=== PATIENT | male | born 1950 | race American Indian/Alaskan Native ===

== ENCOUNTER 2020-10-30 14:53 | Inpatient (IN) | payer MEDICARE ==
[2020-10-30] MEDS ORDERED: SODIUM CHLORIDE 0.9% 1000 ML 1,000 ML ONE (16:04)
[2020-10-30] MEDS ORDERED: dilTIAZem 25 MG/5 ML INJ ONE (16:04)
[2020-10-30] MEDS ORDERED: SODIUM CHLORIDE 0.9% 1000 ML 1,000 ML IV ONE (16:28)
[2020-10-30] MEDS ORDERED: dilTIAZem 25 MG/5 ML INJ IV ONE (16:28)
--- NOTE | 2020-10-30 16:33 | Emergency Department Report ---
HPI - General Time Seen by Provider: 10/30/20 16:01 - HPI HPI: 70-year-old -[place] male presents to the emergency department via EMS [place] with complaint of palpitations and tachycardia. The patient says that he woke up this morning feeling like his heart was racing. This is happened to him a few times in the recent past but "usually it goes goes away." He was found, at the clinic, to have a heart rate of about 170 and EMS was called for transport. He denies any chest pain, shortness of breath, lower extremity swelling, nausea, vomiting, diaphoresis. He has a past medical history of hypertension. He recently drove to and from [place] about 1 week ago. He did not take anything, nor receive anything, for his symptoms prior to presentation today. ED Past Medical Hx - Past Medical History Previous Medical History?: Yes Hx Hypertension: Yes ED Review of Systems ROS: Stated complaint: TACHYCARDIA Other details as noted in HPI Comment: All other systems reviewed and negative Constitutional: denies: chills, fever Eyes: denies: eye pain, vision change ENT: denies: ear pain, throat pain Respiratory: denies: cough, shortness of breath Cardiovascular: palpitations. denies: edema Gastrointestinal: denies: abdominal pain, vomiting Genitourinary: denies: dysuria, discharge Musculoskeletal: denies: back pain, arthralgia Skin: denies: rash, lesions Neurological: denies: headache, weakness Physical Exam - Physical Exam Vital Signs: Vital Signs 10/30/20 14:54 Temperature 98.8 F Pulse Rate 170 H Respiratory 18 Rate Blood Pressure 109/62 [Left] O2 Sat by Pulse 99 Oximetry Physical Exam: GENERAL: The patient is well-developed well-nourished. HENT: Normocephalic. Atraumatic. Patient has moist mucous membranes. EYES: Extraocular motions are intact NECK: Supple. Trachea is midline. CHEST/LUNGS: Clear to auscultation. There is no respiratory distress noted. HEART/CARDIOVASCULAR: Regular. There is severe tachycardia. There is no murmur. ABDOMEN: Abdomen is soft, nontender. Patient has normal bowel sounds. There is no abdominal distention. SKIN: Skin is warm and dry. NEURO: The patient is awake, alert, and oriented. The patient is cooperative. The patient has no focal neurologic deficits. Normal speech. MUSCULOSKELETAL: There is no tenderness or deformity. There is no limitation range of motion. ED Course Vital Signs 10/30/20 14:54 Temperature 98.8 F Pulse Rate 170 H Respiratory 18 Rate Blood Pressure 109/62 [Left] O2 Sat by Pulse 99 Oximetry - Reevaluation(s) Reevaluation #1: 10/30/20 16:31 Patient's initial EKG shows a wide complex tachycardia at about 165 bpm. He was given 15 mg of Cardizem and after 1 to 2 minutes patient cardioverted and his heart rate is now down to 67. Repeat EKG shows sinus rhythm at 67 bpm and a right bundle branch block. ED Medical Decision Making - Lab Data Result diagrams: 10/30/20 15:58 10/30/20 15:58 Lab Results 10/30/20 10/30/20 10/30/20 Range/Units 15:58 15:58 15:58 WBC 10.7 (4.5-11.0) K/mm3 RBC 5.40 H (3.65-5.03) M/mm3 Hgb 11.0 L (11.8-15.2) gm/dl Hct 34.2 L (35.5-45.6) % MCV 63 L (84-94) fl MCH 20 L (28-32) pg MCHC 32 (32-34) % RDW > 40.0 H (13.2-15.2) % Plt Count 629 H (140-440) K/mm3 [place] % (Auto) Process Control Technician Baso % (Auto) Process Control Technician Add Manual Diff Complete Total Counted 100 Seg Neuts % (Manual) 42.0 (40.0-70.0) % Lymphocytes % (Manual) 29.0 (13.4-35.0) % Monocytes % (Manual) 27.0 H (0.0-7.3) % Eosinophils % (Manual) 1.0 (0.0-4.3) % Basophils % (Manual) 1.0 (0.0-1.8) % Nucleated RBC % Not Reportable Seg Neutrophils # Man 4.5 (1.8-7.7) K/mm3 Band Neutrophils # 0.0 K/mm3 Lymphocytes # (Manual) 3.1 (1.2-5.4) K/mm3 Abs React Lymphs (Man) 0.0 K/mm3 Monocytes # (Manual) 2.9 H (0.0-0.8) K/mm3 Eosinophils # (Manual) 0.1 (0.0-0.4) K/mm3 Basophils # (Manual) 0.1 (0.0-0.1) K/mm3 Metamyelocytes # 0.0 K/mm3 Myelocytes # 0.0 K/mm3 Promyelocytes # 0.0 K/mm3 Blast Cells # 0.0 K/mm3 WBC Morphology Not Reportable Hypersegmented Neuts Not Reportable Hyposegmented Neuts Not Reportable Hypogranular Neuts Not Reportable Smudge Cells Not Reportable Toxic Granulation Not Reportable Toxic Vacuolation Not Reportable Dohle Bodies Not Reportable Pelger-Huet Anomaly Not Reportable Tasha Rods Not Reportable Platelet Estimate Not Reportable Clumped Platelets Not Reportable Plt Clumps, EDTA Not Reportable Large Platelets Not Reportable Giant Platelets Not Reportable Platelet Satelliting Not Reportable Plt Morphology Comment Not Reportable RBC Morphology Not Reportable Dimorphic RBCs Yes Polychromasia Not Reportable Hypochromasia 2+ Poikilocytosis Not Reportable Anisocytosis 3+ Microcytosis 2+ Macrocytosis Rare Spherocytes Not Reportable Pappenheimer Bodies Not Reportable Sickle Cells Not Reportable Target Cells Not Reportable Tear Drop Cells Not Reportable Ovalocytes Not Reportable Helmet Cells Not Reportable [place] Bodies Not Reportable [place] Rings Not Reportable [place] Cells Not Reportable Bite Cells Not Reportable Crenated Cell Not Reportable Elliptocytes Not Reportable Acanthocytes (Spur) Not Reportable Rouleaux Not Reportable Hemoglobin C Crystals Not Reportable Schistocytes 1+ Malaria parasites Not Reportable Adolfo Bodies Not Reportable Hem Pathologist Commnt No D-Dimer 497.00 H (0-234) ng/mlDDU Sodium 138 (137-145) mmol/L Potassium 6.1 H* (3.6-5.0) mmol/L Chloride 104.8 (98-107) mmol/L Carbon Dioxide 21 L (22-30) mmol/L Anion Gap 18 mmol/L BUN 26 H (9-20) mg/dL Creatinine 1.5 H (0.8-1.3) mg/dL Estimated GFR 56 ml/min BUN/Creatinine Ratio 17 % Glucose 84 (75-100) mg/dL Calcium 8.9 (8.4-10.2) mg/dL Total Bilirubin 0.60 (0.1-1.2) mg/dL AST 26 (5-40) units/L ALT 13 (7-56) units/L Alkaline Phosphatase 58 (35-129) units/L Troponin T < 0.010 (0.00-0.029) ng/mL Total Protein 7.7 (6.3-8.2) g/dL Albumin 4.2 (3.9-5) g/dL Albumin/Globulin Ratio 1.2 % TSH (0.270-4.200) mlU/mL 10/30/20 Range/Units 15:58 WBC (4.5-11.0) K/mm3 RBC (3.65-5.03) M/mm3 Hgb (11.8-15.2) gm/dl Hct (35.5-45.6) % MCV (84-94) fl MCH (28-32) pg MCHC (32-34) % RDW (13.2-15.2) % Plt Count (140-440) K/mm3 [place] % (Auto) Baso % (Auto) Add Manual Diff Total Counted Seg Neuts % (Manual) (40.0-70.0) % Lymphocytes % (Manual) (13.4-35.0) % Monocytes % (Manual) (0.0-7.3) % Eosinophils % (Manual) (0.0-4.3) % Basophils % (Manual) (0.0-1.8) % Nucleated RBC % Seg Neutrophils # Man (1.8-7.7) K/mm3 Band Neutrophils # K/mm3 Lymphocytes # (Manual) (1.2-5.4) K/mm3 Abs React Lymphs (Man) K/mm3 Monocytes # (Manual) (0.0-0.8) K/mm3 Eosinophils # (Manual) (0.0-0.4) K/mm3 Basophils # (Manual) (0.0-0.1) K/mm3 Metamyelocytes # K/mm3 Myelocytes # K/mm3 Promyelocytes # K/mm3 Blast Cells # K/mm3 WBC Morphology Hypersegmented Neuts Hyposegmented Neuts Hypogranular Neuts Smudge Cells Toxic Granulation Toxic Vacuolation Dohle Bodies Pelger-Huet Anomaly Tasha Rods Platelet Estimate Clumped Platelets Plt Clumps, EDTA Large Platelets Giant Platelets Platelet Satelliting Plt Morphology Comment RBC Morphology Dimorphic RBCs Polychromasia Hypochromasia Poikilocytosis Anisocytosis Microcytosis Macrocytosis Spherocytes Pappenheimer Bodies Sickle Cells Target Cells Tear Drop Cells Ovalocytes Helmet Cells [place] Bodies [place] Rings [place] Cells Bite Cells Crenated Cell Elliptocytes Acanthocytes (Spur) Rouleaux Hemoglobin C Crystals Schistocytes Malaria parasites Adolfo Bodies Hem Pathologist Commnt D-Dimer (0-234) ng/mlDDU Sodium (137-145) mmol/L Potassium (3.6-5.0) mmol/L Chloride (98-107) mmol/L Carbon Dioxide (22-30) mmol/L Anion Gap mmol/L BUN (9-20) mg/dL Creatinine (0.8-1.3) mg/dL Estimated GFR ml/min BUN/Creatinine Ratio % Glucose (75-100) mg/dL Calcium (8.4-10.2) mg/dL Total Bilirubin (0.1-1.2) mg/dL AST (5-40) units/L ALT (7-56) units/L Alkaline Phosphatase (35-129) units/L Troponin T (0.00-0.029) ng/mL Total Protein (6.3-8.2) g/dL Albumin (3.9-5) g/dL Albumin/Globulin Ratio % TSH 0.780 (0.270-4.200) mlU/mL - EKG Data -: EKG Interpreted by Me - EKG Data When compared to previous EKG there are: previous EKG unavailable Interpretation: other (Wide-complex tachycardia 171 bpm, normal axis, slightly p rolonged QTC) 10/30/20 16:33 Repeat EKG at 1617 was also interpreted by me. Sinus rhythm at 67 bpm, normal axis, normal intervals, right bundle branch block. No ST elevation [place]. - Radiology Data Radiology results: report reviewed, image reviewed interpreted by me: Chest x-ray does not show any acute process. There are no pleural effusions, obvious pneumonia and there is no pneumothorax. No widened mediastinum. CTA CHEST WITH IV CONTRAST INDICATION: Palpitations, Elevated dimer. TECHNIQUE: Axial CT images were obtained through the chest after injection of 100 cc IV contrast. 3 plane MIP reconstructions were produced. All CT scans at this location are performed using CT dose reduction for ALARA by means of automated exposure control. COMPARISON: None available. FINDINGS: PULMONARY ARTERIES: No pulmonary emboli. THORACIC AORTA: Moderate vascular calcifications nonaneurysmal thoracic aorta. HEART: Moderate cardiomegaly CORONARY ARTERIES: No significant calcification. PLEURA: No pleural effusion. No pneumothorax. LYMPH NODES: No significant adenopathy. LUNGS: No acute air space or interstitial disease. ADDITIONAL FINDINGS: None. UPPER ABDOMEN: No acute findings. SKELETAL STRUCTURES: No significant osseous abnormality. IMPRESSION: 1. No CT evidence for pulmonary embolism. 2. Cardiomegaly without CHF - Medical Decision Making This patient presents to the emergency department with severe tachycardia with a heart rate of about 170. Initial EKG shows a wide complex tachycardia. The patient was placed on a monitor and he was given a dose of IV Cardizem for rate control. This cardioverted the patient into a normal sinus rhythm. The patient's labs show an elevated D-dimer level of about 480, and hyperkalemia with a potassium of 6.1. The patient was given Kayexalate, calcium, insulin and D50 for the hyperkalemia. He had a CT angiography of the chest that did not show any pulmonary embolism, dissection, or any other acute process. Patient will be admitted to the hospital for continued telemetry monitoring and treatment of his hyperkalemia. He was accepted for admission by the hospitalist, Dr. Marcos. Critical Care Time: Yes Critical care time in (mins) excluding proc time.: 31 Critical care attestation.: If time is entered above; I have spent that time in minutes in the direct care of this critically ill patient, excluding procedure time. Critical care time was spent on this patient during his initial evaluation, multiple reevaluations, ordering and interpretation of labs and imaging, IV medication for cardioversion for his wide-complex tachyarrhythmia, treatment of his hyperkalemia, and multiple discussions with the patient. Critical Care Time: 31 minutes ED Disposition Clinical Impression: Tachyarrhythmia, Hyperkalemia, Palpitations Disposition: ADMITTED INPATIENT Is pt being admited?: Yes Condition: Fair Time of Disposition: 19:00
--- NOTE | 2020-10-30 16:45 | XRay Report ---
CHEST 1 VIEW 10/30/2020 3:39 PM INDICATION / CLINICAL INFORMATION: Chest pain. COMPARISON: None available. FINDINGS: SUPPORT DEVICES: None. HEART / MEDIASTINUM: No significant abnormality. LUNGS / PLEURA: No significant pulmonary or pleural abnormality. No pneumothorax. ADDITIONAL FINDINGS: No significant additional findings. IMPRESSION: 1. No acute findings. Signer Name: Paulino Cheng MD Signed: 10/30/2020 4:41 PM Workstation Name: [id number]
[2020-10-30 17:18] LABS: Alanine Aminotransferase 13 units/L (7-56); Albumin 4.2 g/dL (3.9-5); BUN/Creatinine Ratio 17; Blood Urea Nitrogen 26 mg/dL (9-20); Calcium 8.9 mg/dL (8.4-10.2); Hemolysis Index 11
[2020-10-30 17:23] LABS: Hematocrit 34.2 % (35.5-45.6); Mean Corpuscular HGB Conc 32 % (32-34); Mean Corpuscular Volume 63 fl (84-94); Platelet Count 629 K/mm3 (140-440); Red Cell Distribution Width > 40.0 % (13.2-15.2)
[2020-10-30] MEDS ORDERED: CALCIUM GLUCONATE 1,000 MG in SODIUM CHLORIDE 0.9% 100 ML IV ONE (17:41)
[2020-10-30] MEDS ORDERED: SODIUM POLYSTYRENE 15 GM/60 ML ORAL LIQD PO ONE (17:42)
[2020-10-30] MEDS ORDERED: DEXTROSE 50% IN WATER (25GM) 50 ML SYRINGE IV ONE (17:42)
[2020-10-30] MEDS ORDERED: INSULIN REGULAR, HUMAN 100 UNITS/1 ML IV ONE (17:42)
--- NOTE | 2020-10-30 18:49 | Cat Scan Report ---
CTA CHEST WITH IV CONTRAST INDICATION: Palpitations, Elevated dimer. TECHNIQUE: Axial CT images were obtained through the chest after injection of 100 cc IV contrast. 3 plane MIP re constructions were produced. All CT scans at this location are performed using CT dose reduction for ALARA by means of automated exposure control. COMPARISON: None available. FINDINGS: PULMONARY ARTERIES: No pulmonary emboli. THORACIC AORTA: Moderate vascular calcifications nonaneurysmal thoracic aorta. HEART: Moderate cardiomegaly CORONARY ARTERIES: No significant calcification. PLEURA: No pleural effusion. No pneumothorax. LYMPH NODES: No significant adenopathy. LUNGS: No acute air space or interstitial disease. ADDITIONAL FINDINGS: None. UPPER ABDOMEN: No acute findings. SKELETAL STRUCTURES: No significant osseous abnormality. IMPRESSION: 1. No CT evidence for pulmonary embolism. 2. Cardiomegaly without CHF Signer Name: Jaleel Melara MD Signed: 10/30/2020 6:45 PM Workstation Name: [id number]
[2020-10-30 19:43] LABS: Anisocytosis 3+; Hypochromasia 2+; Schistocytes 1+; Total Cells Counted 100
[2020-10-30 19:44] LABS: Dimorphic RBC Yes; Macrocytosis Rare
--- NOTE | 2020-10-30 20:55 | History and Physical Report ---
History of Present Illness Date of examination: 10/30/20 Date of admission: 10/30/2020 Chief complaint: Palpitations since 8 AM History of present illness: 70-year-old male with history of hypertension and status post splenectomy has been having palpitations off and on for the last 1 month. Patient attributed to his high blood pressure. Patient had first episode 1 month ago which resolved spontaneously. A second episode 1 week ago which resolved spontaneously. No diaphoresis. This morning palpitations started and persisted and because of shortness of breath patient came to the emergency room for evaluation. Patient goes to [facility] for regular checkups. [place] and was found to be in subtrochanteric tachycardia and was sent by EMS to the emergency room at [facility]. He did recently drove a car to [place] and back 1 week ago. Takes medications for his hypertension. In the ED patient was given adenosine which converted the SVT back to his normal sinus rhythm with right bundle branch block. Patient not on any drip. - Past Medical History Previous Medical History?: Yes --Hypertension: Yes -Past surgical history --splenectomy -Social history smokes about 2 to 3 cigarettes a day -Family history --Htn Review of Systems ROS: Stated complaint: TACHYCARDIA Other details as noted in HPI Comment: All other systems reviewed and negative Constitutional: denies: chills, fever Eyes: denies: eye pain, vision change ENT: denies: ear pain, throat pain Respiratory: denies: cough, shortness of breath Cardiovascular: palpitations. denies: edema Gastrointestinal: denies: abdominal pain, vomiting Genitourinary: denies: dysuria, discharge Musculoskeletal: denies: back pain, arthralgia Skin: denies: rash, lesions Neurological: denies: headache, weakness Medications and Allergies Allergies Allergy/AdvReac Type Severity Reaction Status Date / Time No Known Allergies Allergy Unverified 10/30/20 16:27 Exam - Constitutional Vitals: Temp Pulse Resp BP Pulse Ox 98.8 F 72 18 141/69 99 10/30/20 14:54 10/30/20 17:39 10/30/20 19:15 10/30/20 19:37 10/30/20 19:36 General appearance: Present: no acute distress, well-nourished - EENT Eyes: Present: PERRL ENT: hearing intact, clear oral mucosa - Neck Neck: Present: supple, normal ROM - Respiratory Respiratory effort: normal Respiratory: bilateral: CTA - Cardiovascular Heart rate: 78 Rhythm: regular Heart Sounds: Present: S1 & S2. Absent: rub, click - Extremities Extremities: pulses symmetrical, No edema Peripheral Pulses: within normal limits - Abdominal General gastrointestinal: Present: soft, non-tender, non-distended, normal bowel sounds Male genitourinary: Present: normal - Integumentary Integumentary: Present: clear, warm, dry - Musculoskeletal Musculoskeletal: gait normal, strength equal bilaterally - Psychiatric Psychiatric: appropriate mood/affect, intact judgment & insight - Neurologic Neurologic: CNII-XII intact, moves all extremities HEART Score - HEART Score History: Moderately suspicious Age: > 65 Risk factors: 1-2 risk factors Troponin: Troponin T < 0.010 ng/mL (0.00-0.029) 10/30/20 15:58 Troponin: < normal limit - Critical Actions Critical Actions: 0-3 pts:0.9-1.7%risk of adverse cardiac event.Candidate for discharge Results - Labs CBC & Chem 7: 10/31/20 04:48 10/31/20 04:48 Labs: Laboratory Last Values WBC 10.7 K/mm3 (4.5-11.0) 10/30/20 15:58 RBC 5.40 M/mm3 (3.65-5.03) H 10/30/20 15:58 Hgb 11.0 gm/dl (11.8-15.2) L 10/30/20 15:58 Hct 34.2 % (35.5-45.6) L 10/30/20 15:58 MCV 63 fl (84-94) L 10/30/20 15:58 MCH 20 pg (28-32) L 10/30/20 15:58 MCHC 32 % (32-34) 10/30/20 15:58 RDW > 40.0 % (13.2-15.2) H 10/30/20 15:58 Plt Count 629 K/mm3 (140-440) H 10/30/20 15:58 [place] % (Auto) Calender Feeder 10/30/20 15:58 Baso % (Auto) Calender Feeder 10/30/20 15:58 Add Manual Diff Complete 10/30/20 15:58 Total Counted 100 10/30/20 15:58 Seg Neuts % (Manual) 42.0 % (40.0-70.0) 10/30/20 15:58 Lymphocytes % (Manual) 29.0 % (13.4-35.0) 10/30/20 15:58 Monocytes % (Manual) 27.0 % (0.0-7.3) H 10/30/20 15:58 Eosinophils % (Manual) 1.0 % (0.0-4.3) 10/30/20 15:58 Basophils % (Manual) 1.0 % (0.0-1.8) 10/30/20 15:58 Nucleated RBC % Not Reportable 10/30/20 15:58 Seg Neutrophils # Man 4.5 K/mm3 (1.8-7.7) 10/30/20 15:58 Band Neutrophils # 0.0 K/mm3 10/30/20 15:58 Lymphocytes # (Manual) 3.1 K/mm3 (1.2-5.4) 10/30/20 15:58 Abs React Lymphs (Man) 0.0 K/mm3 10/30/20 15:58 Monocytes # (Manual) 2.9 K/mm3 (0.0-0.8) H 10/30/20 15:58 Eosinophils # (Manual) 0.1 K/mm3 (0.0-0.4) 10/30/20 15:58 Basophils # (Manual) 0.1 K/mm3 (0.0-0.1) 10/30/20 15:58 Metamyelocytes # 0.0 K/mm3 10/30/20 15:58 Myelocytes # 0.0 K/mm3 10/30/20 15:58 Promyelocytes # 0.0 K/mm3 10/30/20 15:58 Blast Cells # 0.0 K/mm3 10/30/20 15:58 WBC Morphology Not Reportable 10/30/20 15:58 Hypersegmented Neuts Not Reportable 10/30/20 15:58 Hyposegmented Neuts Not Reportable 10/30/20 15:58 Hypogranular Neuts Not Reportable 10/30/20 15:58 Smudge Cells Not Reportable 10/30/20 15:58 Toxic Granulation Not Reportable 10/30/20 15:58 Toxic Vacuolation Not Reportable 10/30/20 15:58 Dohle Bodies Not Reportable 10/30/20 15:58 Pelger-Huet Anomaly Not Reportable 10/30/20 15:58 Tasha Rods Not Reportable 10/30/20 15:58 Platelet Estimate Not Reportable 10/30/20 15:58 Clumped Platelets Not Reportable 10/30/20 15:58 Plt Clumps, EDTA Not Reportable 10/30/20 15:58 Large Platelets Not Reportable 10/30/20 15:58 Giant Platelets Not Reportable 10/30/20 15:58 Platelet Satelliting Not Reportable 10/30/20 15:58 Plt Morphology Comment Not Reportable 10/30/20 15:58 RBC Morphology Not Reportable 10/30/20 15:58 Dimorphic RBCs Yes 10/30/20 15:58 Polychromasia Not Reportable 10/30/20 15:58 Hypochromasia 2+ 10/30/20 15:58 Poikilocytosis Not Reportable 10/30/20 15:58 Anisocytosis 3+ 10/30/20 15:58 Microcytosis 2+ 10/30/20 15:58 Macrocytosis Rare 10/30/20 15:58 Spherocytes Not Reportable 10/30/20 15:58 Pappenheimer Bodies Not Reportable 10/30/20 15:58 Sickle Cells Not Reportable 10/30/20 15:58 Target Cells Not Reportable 10/30/20 15:58 Tear Drop Cells Not Reportable 10/30/20 15:58 Ovalocytes Not Reportable 10/30/20 15:58 Helmet Cells Not Reportable 10/30/20 15:58 [place] Bodies Not Reportable 10/30/20 15:58 [place] Rings Not Reportable 10/30/20 15:58 [place] Cells Not Reportable 10/30/20 15:58 Bite Cells Not Reportable 10/30/20 15:58 Crenated Cell Not Reportable 10/30/20 15:58 Elliptocytes Not Reportable 10/30/20 15:58 Acanthocytes (Spur) Not Reportable 10/30/20 15:58 Rouleaux Not Reportable 10/30/20 15:58 Hemoglobin C Crystals Not Reportable 10/30/20 15:58 Schistocytes 1+ 10/30/20 15:58 Malaria parasites Not Reportable 10/30/20 15:58 Adolfo Bodies Not Reportable 10/30/20 15:58 Hem Pathologist Commnt No 10/30/20 15:58 D-Dimer 497.00 ng/mlDDU (0-234) H 10/30/20 15:58 Sodium 138 mmol/L (137-145) 10/30/20 15:58 Potassium 6.1 mmol/L (3.6-5.0) H* 10/30/20 15:58 Chloride 104.8 mmol/L (98-107) 10/30/20 15:58 Carbon Dioxide 21 mmol/L (22-30) L 10/30/20 15:58 Anion Gap 18 mmol/L 10/30/20 15:58 BUN 26 mg/dL (9-20) H 10/30/20 15:58 Creatinine 1.5 mg/dL (0.8-1.3) H 10/30/20 15:58 Estimated GFR 56 ml/min 10/30/20 15:58 BUN/Creatinine Ratio 17 % 10/30/20 15:58 Glucose 84 mg/dL (75-100) 10/30/20 15:58 Calcium 8.9 mg/dL (8.4-10.2) 10/30/20 15:58 Total Bilirubin 0.60 mg/dL (0.1-1.2) 10/30/20 15:58 AST 26 units/L (5-40) 10/30/20 15:58 ALT 13 units/L (7-56) 10/30/20 15:58 Alkaline Phosphatase 58 units/L (35-129) 10/30/20 15:58 Troponin T < 0.010 ng/mL (0.00-0.029) 10/30/20 15:58 Total Protein 7.7 g/dL (6.3-8.2) 10/30/20 15:58 Albumin 4.2 g/dL (3.9-5) 10/30/20 15:58 Albumin/Globulin Ratio 1.2 % 10/30/20 15:58 TSH 0.780 mlU/mL (0.270-4.200) 10/30/20 15:58 Short CBC 10/30/20 10/31/20 Range/Units 15:58 04:48 WBC 10.7 10.4 (4.5-11.0) K/mm3 Hgb 11.0 L 9.6 L (11.8-15.2) gm/dl Hct 34.2 L 29.8 L (35.5-45.6) % Plt Count 629 H (140-440) K/mm3 BMP 10/30/20 10/31/20 15:58 04:48 Sodium 138 137 Potassium 6.1 H* 4.8 D Chloride 104.8 108.9 H Carbon Dioxide 21 L 21 L BUN 26 H 20 Creatinine 1.5 H 1.3 Glucose 84 92 Calcium 8.9 8.4 Cardiac Enzymes 10/30/20 Range/Units 15:58 Troponin T < 0.010 (0.00-0.029) ng/mL Liver Function 10/30/20 10/31/20 Range/Units 15:58 04:48 Total Bilirubin 0.60 0.70 (0.1-1.2) mg/dL AST 26 22 (5-40) units/L ALT 13 13 (7-56) units/L Alkaline Phosphatase 58 56 (35-129) units/L Albumin 4.2 3.6 L (3.9-5) g/dL - Imaging and Cardiology EKG: report reviewed (First EKG SVT second EKG right bundle branch block) Chest x-ray: report reviewed Imaging and Cardiology: Chest x-ray No acute findings Assessment and Plan Advance Directives: Yes (Full code) VTE prophylaxis?: Chemical Plan of care discussed with patient/family: Yes - Patient Problems (1) SVT (supraventricular tachycardia) Current Visit: Yes Status: Acute Plan to address problem: Patient converted back to sinus rhythm with IV adenosine in the emergency room Patient started on amiodarone drip Cardiology consult and possible EPS consult 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 (2) Hypertension Current Visit: Yes Status: Chronic Qualifiers: Hypertension type: primary hypertension Qualified Code(s): I10 - Essential (primary) hypertension Plan to address problem: Patient initiated on Cardizem CD 120 mg daily (3) Anemia Current Visit: Yes Status: Chronic Qualifiers: Anemia type: iron deficiency Plan to address problem: May have low iron levels We will check iron B12 and folic acid levels (4) CARISSA (acute kidney injury) Current Visit: Yes Status: Acute Plan to address problem: IV fluids for now (5) Hyperkalemia Current Visit: Yes Status: Acute Plan to address problem: Treated with Kayexalate Recheck potassium level (6) DVT prophylaxis Current Visit: Yes Status: Acute Plan to address problem: On heparin and GI prophylaxis
[2020-10-30] MEDS ORDERED: ACETAMINOPHEN 325 MG TAB PO PRN (20:59)
[2020-10-30] MEDS ORDERED: ONDANSETRON 4 MG/2 ML INJ IV PRN (20:59)
[2020-10-30] MEDS ORDERED: HYDROmorphone 1 MG/1 ML INJ IV PRN (20:59)
[2020-10-30] MEDS ORDERED: oxyCODONE /ACETAMINOPHEN 5-325MG TAB PO PRN (20:59)
[2020-10-30] MEDS ORDERED: AMIODARONE 900 MG in DEXTROSE 5% IN WATER 482 ML IV SCH (22:00)
[2020-10-30] MEDS ORDERED: dilTIAZem CD 120 MG CAP PO SCH (22:00)
[2020-10-31] MEDS: ENOXAPARIN 40 MG/0.4 ML INJ SUB-Q SCH ×2 (00:45→10:08)
[2020-10-31] MEDS: FAMOTIDINE 20 MG/2 ML INJ IV SCH ×2 (00:48→10:08)
[2020-10-31 05:59] LABS: Hematocrit 29.8 % (35.5-45.6); Hemoglobin 9.6 gm/dl (11.8-15.2); Mean Corpuscular HGB Conc 32 % (32-34); Red Blood Count 4.77 M/mm3 (3.65-5.03)
[2020-10-31 06:18] LABS: Mean Corpuscular Volume 63 fl (84-94)
[2020-10-31 06:23] LABS: Alanine Aminotransferase 13 units/L (7-56); Albumin 3.6 g/dL (3.9-5); BUN/Creatinine Ratio 15; Blood Urea Nitrogen 20 mg/dL (9-20); Calcium 8.4 mg/dL (8.4-10.2); Hemolysis Index 2
[2020-10-31 06:48] LABS: Red Cell Distribution Width > 40.0 % (13.2-15.2)
--- NOTE | 2020-10-31 09:21 | Electrocardiograph Report ---
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
--- NOTE | 2020-10-31 09:21 | Electrocardiograph Report ---
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
[2020-10-31 10:23] LABS: Anisocytosis 3+; Band Neutrophils # (Manual) 0.1 K/mm3; Total Cells Counted 100
[2020-10-31 10:24] LABS: Hypochromasia 2+; Ovalocytes 2+; Platelet Estimate Consistent w Auto; Poikilocytosis 1+; Tear Drop Cells 2+
[2020-10-31 10:38] LABS: Platelet Count 638 K/mm3 (140-440)
--- NOTE | 2020-10-31 10:40 | Consultation ---
History of Present Illness Consult date: 10/31/20 Consult reason: arrhythmia History of present illness: Patient is a 70-year-old man, history of hypertension and chronic tobacco abuse, who receives his usual care at the [facility]. He denies any significant prior cardiac history that he is aware of. He presented to the emergency room with sudden onset of palpitations, in the emergency room his EKG was a wide-complex tachycardia, right bundle branch block morphology with retrograde P waves. The emergency room records show that he was treated with intravenous diltiazem, and several hours into his ER because he returned to a normal sinus rhythm, with right bundle branch block. He is currently comfortable, asymptomatic, remains in a stable sinus rhythm. The chronicity of the right bundle branch block is uncertain, no old EKGs are available for comparison. Laboratory values show that his potassium was 6.1 on presentation, and creatinine was mildly elevated at 1.5. CT of the chest was negative for pulmonary embolism. Chest x-ray revealed moderate severity cardiomegaly, but clear lungs. Past History Past Medical History: COPD, hypertension, other (Chronic tobacco abuse) Medications and Allergies Allergies Allergy/AdvReac Type Severity Reaction Status Date / Time No Known Allergies Allergy Unverified 10/30/20 16:27 Home Medications Medication Instructions Recorded Confirmed Last Taken Type No Known Home Medications [No 10/31/20 10/31/20 Unknown History Reported Home Medications] Active Meds: Active Medications Acetaminophen (Acetaminophen 325 Mg Tab) 650 mg PO Q4H PRN PRN Reason: Pain MILD(1-3)/Fever >100.5/MENDOZA Diltiazem HCl (Diltiazem Cd 120 Mg Cap) 120 mg PO Q24H [facility] Last Admin: 10/31/20 00:46 Dose: 120 mg Documented by: Enoxaparin Sodium (Enoxaparin 40 Mg/0.4 Ml Inj) 40 mg SUB-Q QDAY [facility] Last Admin: 10/31/20 00:45 Dose: 40 mg Documented by: Famotidine (Famotidine 20 Mg/2 Ml Inj) 20 mg IV BID [facility] Last Admin: 10/31/20 00:48 Dose: 20 mg Documented by: Hydromorphone HCl (Hydromorphone 1 Mg/1 Ml Inj) 0.5 mg IV Q3H PRN PRN Reason: Pain , Severe (7-10) Last Admin: 10/31/20 00:50 Dose: 0.5 mg Documented by: Sodium Chloride (Nacl 0.9% 1000 Ml) 1,000 mls @ 75 mls/hr IV DIRECT FRANTZ Ondansetron HCl (Ondansetron 4 Mg/2 Ml Inj) 4 mg IV Q8H PRN PRN Reason: Nausea And Vomiting Oxycodone/Acetaminophen (Oxycodone /Acetaminophen 5-325mg Tab) 1 tab PO Q6H PRN PRN Reason: Pain, Moderate (4-6) Sodium Chloride (Sodium Chloride 0.9% 10 Ml Flush Syringe) 10 ml IV BID FRANTZ Last Admin: 10/30/20 22:15 Dose: 10 ml Documented by: Sodium Chloride (Sodium Chloride 0.9% 10 Ml Flush Syringe) 10 ml IV PRN PRN PRN Reason: LINE FLUSH Review of Systems Cardiovascular: palpitations, rapid/irregular heart beat, shortness of breath, no chest pain, no orthopnea, no edema, no syncope, no lightheadedness Physical Examination Vital Signs Temp Pulse Resp BP Pulse Ox 98.8 F 170 H 18 109/62 99 10/30/20 14:54 10/30/20 14:54 10/30/20 14:54 10/30/20 14:54 10/30/20 14:54 General appearance: no acute distress HEENT: Positive: PERRL Neck: Positive: neck supple Cardiac: Positive: Reg Rate and Rhythm Lungs: Positive: Decreased Breath Sounds Neuro: Positive: Grossly Intact Abdomen: Positive: Soft Male genitourinary: Positive: deferred Skin: Positive: Clear Extremities: Absent: edema Results 10/31/20 04:48 10/31/20 04:48 Cardiac Enzymes 10/30/20 10/31/20 Range/Units 15:58 04:48 AST 26 22 (5-40) units/L CBC 10/30/20 10/31/20 Range/Units 15:58 04:48 WBC 10.7 10.4 (4.5-11.0) K/mm3 RBC 5.40 H 4.77 (3.65-5.03) M/mm3 Hgb 11.0 L 9.6 L (11.8-15.2) gm/dl Hct 34.2 L 29.8 L (35.5-45.6) % Plt Count 629 H (140-440) K/mm3 Comprehensive Metabolic Panel 10/30/20 10/31/20 Range/Units 15:58 04:48 Sodium 138 137 (137-145) mmol/L Potassium 6.1 H* 4.8 D (3.6-5.0) mmol/L Chloride 104.8 108.9 H (98-107) mmol/L Carbon Dioxide 21 L 21 L (22-30) mmol/L BUN 26 H 20 (9-20) mg/dL Creatinine 1.5 H 1.3 (0.8-1.3) mg/dL Glucose 84 92 (75-100) mg/dL Calcium 8.9 8.4 (8.4-10.2) mg/dL AST 26 22 (5-40) units/L ALT 13 13 (7-56) units/L Alkaline Phosphatase 58 56 (35-129) units/L Total Protein 7.7 7.2 (6.3-8.2) g/dL Albumin 4.2 3.6 L (3.9-5) g/dL EKG interpretations - Telemetry EKG Rhythm: SVT Assessment and Plan - Patient Problems (1) Wide-complex tachycardia Current Visit: Yes Status: Acute Plan to address problem: Patient presented with sustained, wide-complex tachycardia with a right bundle branch block morphology. He has the right bundle branch block and his baseline sinus rhythm, suggesting a likely supraventricular tachycardia with aberrancy. However, sustained ventricular tachycardia cannot be excluded. We will treat him with beta-blockers and order an echocardiogram for left ventricular function assessment. Further cardiac evaluation and management will depend on clinical course and findings on left ventricular function assessment.
[2020-10-31] MEDS: METOPROLOL TARTRATE 50 MG TAB PO SCH ×2 (11:53→22:16)
[2020-10-31] MEDS: ASPIRIN EC 81 MG TAB PO SCH (11:53)
[2020-10-31] MEDS: SODIUM CHLORIDE 0.9% 1000 ML 1,000 ML IV SCH (11:54)
--- NOTE | 2020-10-31 21:23 | Progress Note ---
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 Patient on oral Cardizem and amiodarone drip (2) Hypertension Current Visit: Yes Status: Chronic Qualifiers: Hypertension type: primary hypertension Qualified Code(s): I10 - Essential (primary) hypertension Plan to address problem: Patient initiated on Cardizem CD 120 mg daily (3) Anemia Current Visit: Yes Status: Chronic Qualifiers: Anemia type: iron deficiency Plan to address problem: May have low iron levels We will check iron B12 and folic acid levels (4) CARISSA (acute kidney injury) Current Visit: Yes Status: Acute Plan to address problem: IV fluids for now (5) Hyperkalemia Current Visit: Yes Status: Acute Plan to address problem: Treated with Kayexalate Recheck potassium level (6) DVT prophylaxis Current Visit: Yes Status: Acute Plan to address problem: On heparin and GI prophylaxis Subjective Date of service: 10/31/20 Principal diagnosis: SVT Interval history: 70-year-old male with history of hypertension and status post splenectomy has been having palpitations off and on for the last 1 month. Patient attributed to his high blood pressure. Patient had first episode 1 month ago which resolved spontaneously. A second episode 1 week ago which resolved spontaneously. No diaphoresis. This morning palpitations started and persisted and because of shortness of breath patient came to the emergency room for evaluation. Patient goes to [facility] for regular checkups. Patient went to the [place] [facility] and was found to be in subtrochanteric tachycardia and was sent by EMS to the emergency room at [facility]. He did recently drove a car to [place] and back 1 week ago. Takes medications for his hypertension. In the ED patient was given adenosine which converted the SVT back to his normal sinus rhythm with right bundle branch block. Patient not on any drip. 10/31/2020 Tachycardia has improved Symptomatically better Echocardiogram pending Cardiology consult appreciated Objective - Constitutional Vitals: Vital Signs - 12hr 10/31/20 10/31/20 10/31/20 10:35 11:09 11:10 Temperature 97.7 F Pulse Rate 64 Blood Pressure 144/58 O2 Sat by Pulse 97 Oximetry 10/31/20 10/31/20 10/31/20 11:43 11:53 16:01 Temperature Pulse Rate 64 66 Blood Pressure 144/58 O2 Sat by Pulse 94 Oximetry General appearance: Present: no acute distress, well-nourished - EENT Eyes: PERRL, EOM intact ENT: hearing intact, clear oral mucosa Ears: bilateral: normal - Neck Neck: supple, normal ROM - Respiratory Respiratory effort: normal Respiratory: bilateral: CTA - Breasts Breasts: normal - Cardiovascular Heart rate: 78 Rhythm: regular Heart Sounds: Present: S1 & S2. Absent: gallop, rub Extremities: pulses intact, No edema, normal color, Full ROM - Gastrointestinal General gastrointestinal: Present: soft, non-tender, non-distended, normal bowel sounds - Genitourinary Male genitourinary: normal - Integumentary Integumentary: clear, warm, dry - Musculoskeletal Musculoskeletal: 1, strength equal bilaterally - Neurologic Neurologic: moves all extremities - Psychiatric Psychiatric: memory intact, appropriate mood/affect, intact judgment & insight - Labs CBC & Chem 7: 10/31/20 04:48 10/31/20 04:48 Labs: Abnormal lab results 10/31/20 10/31/20 Range/Units 04:48 04:48 Hgb 9.6 L (11.8-15.2) gm/dl Hct 29.8 L (35.5-45.6) % MCV 63 L (84-94) fl MCH 20 L (28-32) pg RDW > 40.0 H (13.2-15.2) % Plt Count 638 H (140-440) K/mm3 Monocytes % (Manual) 28.0 H (0.0-7.3) % Nucleated RBC % 2.0 H (0.0-0.9) % Monocytes # (Manual) 2.9 H (0.0-0.8) K/mm3 Chloride 108.9 H (98-107) mmol/L Carbon Dioxide 21 L (22-30) mmol/L Albumin 3.6 L (3.9-5) g/dL HEART Score - HEART Score Age: > 65 Risk factors: 1-2 risk factors Troponin: Troponin T < 0.010 ng/mL (0.00-0.029) 10/30/20 15:58 Troponin: < normal limit - Critical Actions Critical Actions: 0-3 pts:0.9-1.7%risk of adverse cardiac event.Candidate for discharge
[2020-10-31] MEDS: FAMOTIDINE 20 MG TAB PO SCH (22:12)
[2020-11-01] MEDS: METOPROLOL TARTRATE 50 MG TAB PO SCH ×3 (04:35→21:03)
[2020-11-01] MEDS: SODIUM CHLORIDE 0.9% 1000 ML 1,000 ML IV SCH ×2 (04:39→17:50)
--- NOTE | 2020-11-01 11:08 | Progress Note ---
Assessment and Plan 1. Paroxysmal supraventricular tachycardia 2. Essential hypertension 3. Chronic obstructive pulmonary disease Echocardiogram shows cardiomyopathy with left ventricular ejection fraction of 45 to 50%. Plan. Continue beta-carlos enrique therapy. 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 Negative: JVD/HJR Cardiac: Positive: Regular Rate, S1/S2, PMI, Dilated, Laterally Displaced. Negative: S3, S4 Lungs: Positive: clear to auscultation, No Wheeze, Rales, Rhonchi Neuro: Positive: Grossly Intact Abdomen: Positive: Soft Skin: Positive: Clear Extremities: Absent: edema - Imaging and Cardiology EKG: report reviewed (First EKG SVT second EKG right bundle branch block) - Telemetry EKG Rhythm: Sinus Rhythm - EKG Sinus rhythms and dysrhythmias: sinus rhythm AV and intraventricular conduction: right bundle branch block
[2020-11-01] MEDS: FAMOTIDINE 20 MG TAB PO SCH ×2 (12:28→21:03)
[2020-11-01] MEDS: ASPIRIN EC 81 MG TAB PO SCH (12:28)
[2020-11-01] MEDS: ENOXAPARIN 40 MG/0.4 ML INJ SUB-Q SCH (12:29)
--- NOTE | 2020-11-01 19:10 | Discharge Summary ---
Providers - Providers Date of Admission: 10/31/20 09:30 Date of discharge: 11/01/20 Attending physician: MARIAM JONES 10/30/20 20:59 Consult to Physician [CONS] Routine Comment: Consulting Provider: JOANNA ROSA Physician Instructions: Reason For Exam: SVT Primary care physician: SOFTWARE TEST ANALYST Hospitalization Condition: Fair Hospital course: 1. Paroxysmal supraventricular tachycardia 2. Essential hypertension 3. Chronic obstructive pulmonary disease Echocardiogram shows cardiomyopathy with left ventricular ejection fraction of 45 to 50%. Plan. Continue beta-carlos enrique therapy. Referred to psychiatric nursing assistant as an outpatient for EP ablation Disposition: HOME / SELF CARE / HOMELESS Final Discharge Diagnosis (Prints w/discharge instructions): SVT- supraventricular tachycardia. Hypertension anemia. Anemia-- Time spent for discharge: 35 minutes - Discharge Diagnoses (1) SVT (supraventricular tachycardia) Status: Acute (2) Hypertension Status: Chronic Qualifiers: Hypertension type: primary hypertension Qualified Code(s): I10 - Essential (primary) hypertension (3) Anemia Status: Chronic Qualifiers: Anemia type: iron deficiency (4) CARISSA (acute kidney injury) Status: Acute (5) Hyperkalemia Status: Acute (6) DVT prophylaxis Status: Acute Core Measure Documentation - Palliative Care Palliative Care/ Comfort Measures: Not Applicable - Core Measures Any of the following diagnoses?: none Exam - Constitutional Vitals: Temp Pulse Resp BP Pulse Ox 98.4 F 56 L 20 131/61 97 11/01/20 15:53 11/01/20 15:53 11/01/20 15:53 11/01/20 15:53 11/01/20 15:53 General appearance: Present: no acute distress, well-nourished - EENT Eyes: Present: PERRL ENT: hearing intact, clear oral mucosa - Neck Neck: Present: supple, normal ROM - Respiratory Respiratory effort: normal Respiratory: bilateral: CTA - Cardiovascular Heart rate: 78 Rhythm: regular Heart Sounds: Present: S1 & S2. Absent: rub, click - Extremities Extremities: no ischemia, pulses intact, pulses symmetrical, No edema Peripheral Pulses: within normal limits - Abdominal General gastrointestinal: Present: soft, non-tender, non-distended, normal bowel sounds Male genitourinary: Present: normal - Rectal Rectal Exam: deferred - Integumentary Integumentary: Present: clear, warm, dry - Musculoskeletal Musculoskeletal: gait normal, strength equal bilaterally - Psychiatric Psychiatric: appropriate mood/affect, intact judgment & insight - Neurologic Neurologic: CNII-XII intact, moves all extremities - Allied Health Allied health notes reviewed: nursing, case management Plan Activity: no restrictions Diet: low salt Follow up with: PRIMARY CAREMD [Primary Care Provider] - 7 Days JOANNA ROSA MD [Staff Physician] - 7 Days
[2020-11-01 20:48] VITALS: BP 130/56
== END 2020-11-01 21:00 | disposition home or self-care (01) | DRG 309 ==
LOC: ED 14:53 → 4A 19:00 → OBSVTOIN 10-31 09:30
PROVIDERS: ADMIT Internal Medicine; ATTEND Internal Medicine
DX: I47.1 Supraventricular tachycardia (principal); N17.9 Acute kidney failure, unspecified; I42.9 Cardiomyopathy, unspecified; E87.5 Hyperkalemia; J44.9 Chronic obstructive pulmonary disease, unspecified; I10 Essential (primary) hypertension; D50.9 Iron deficiency anemia, unspecified; F17.210 Nicotine dependence, cigarettes, uncomplicated; Z90.81 Acquired absence of spleen; Z82.49 Family history of ischemic heart disease and other diseases of the circulatory system; Z79.899 Other long term (current) drug therapy
CPT/HCPCS: 36415; 71045; 71275; 80053; 83036; 84443; 84484; 85007; 85025; 85379; 93005; 93306; G0378; J0282; J0610; J1170; J1650; J1815; J7030; J7060; Q9967

== ENCOUNTER 2020-11-07 10:13 | Emergency (ER) | payer MEDICARE, OTHER ==
[2020-11-07] MEDS ORDERED: METOPROLOL TARTRATE 50 MG TAB PO ONE (10:59)
[2020-11-07] MEDS ORDERED: ASPIRIN 81 MG TAB CHEW PO ONE (10:59)
--- NOTE | 2020-11-07 10:59 | Emergency Department Report ---
ED General Adult HPI - General Chief complaint: Arrhythmia/Palpitations Stated complaint: PALPITATIONS/SVT PUI?: No Time Seen by Provider: 11/07/20 10:42 Source: patient, EMS (Verbal report received from emergency medical services. EMS documentation not available at time of chart dictation ), RN notes reviewed, old records reviewed Mode of arrival: Stretcher Limitations: No Limitations - History of Present Illness Initial comments: The patient was evaluated in the emergency department for symptoms described in the history of present illness. He/she was evaluated in the context of the global COVID-19 pandemic, which necessitated consideration that the patient might be at risk for infection with the virus that causes COVID-19. Institutional protocols and algorithms that pertain to the evaluation of patients at risk for COVID-19 are in a state of rapid change based on information released by regulatory bodies including the CDC and federal and state organizations. These policies and algorithms were followed during the patient's care in the emergency department. Please note that these policies, procedures and recommendations changed on a rapid basis. Past medical history: Obstructive sleep apnea, on CPAP, COPD, anemia, SVT, currently on metoprolol 50 mg 3 times daily, distant history of splenectomy, secondary to elliptocytosis, possible hypertension Recent diagnostic work-up at this hospital: CT scan of the chest, negative for pulmonary embolism. Echocardiogram, shows EF of 45% The patient is a pleasant 70-year-old gentleman. He is not known to myself previously. He was recently admitted to this hospital for wide-complex tachycardia and presumed SVT. Please reference his discharge summary. He r eports compliance with medications. He presents to the ER today with complaints of resolved SVT. Patient was at home, having breakfast, when he developed a sense of painless palpitations. He took his blood pressure and found it to be elevated. 911 was contacted, and prehospital EKG demonstrated a regular wide-complex tachycardia, patient given 6 mg of adenosine, tachycardia resolved, patient is now currently in a normal sinus rhythm, with a known right bundle branch block. At the moment, the patient denies all symptoms. The patient states he is in his usual state of health. The patient states he feels like he is ready for discharge. The patient denies Covid symptomatology. The patient is a [facility] patient. During his recent hospitalization and discharge, it was recommended that he follow-up with an outpatient pattern cleaner. [facility] reports that [facility]. He does report that yesterday, he had a sensation of painless palpitations, which resolved on their own -: Sudden Consistency: now resolved Improves with: medication Worsens with: none Associated Symptoms: denies other symptoms - Related Data Previous Rx's Medication Instructions Recorded Last Taken Type Aspirin EC [Halfprin EC] 81 mg PO QDAY #100 tablet 11/01/20 Unknown Rx Metoprolol Xl [Metoprolol 100 mg PO BID #60 tablet 11/07/20 Unknown Rx SUCCINATE ER TAB] Allergies Allergy/AdvReac Type Severity Reaction Status Date / Time hydroxychloroquine Allergy Anaphylaxis Verified 11/07/20 11:57 ED Review of Systems ROS: Stated complaint: PALPITATIONS/SVT Other details as noted in HPI Comment: All other systems reviewed and negative Cardiovascular: palpitations ED Past Medical Hx - Past Medical History Hx Hypertension: Yes Hx HIV: No - Social History Smoking Status: Light Tobacco Smoker - Medications Home Medications: Home Medications Medication Instructions Recorded Confirmed Last Taken Type Aspirin EC [Halfprin EC] 81 mg PO QDAY #100 tablet 11/01/20 Unknown Rx Metoprolol Xl [Metoprolol 100 mg PO BID #60 tablet 11/07/20 Unknown Rx SUCCINATE ER TAB] ED Physical Exam - General Limitations: No Limitations General appearance: alert, in no apparent distress - Head Head exam: Present: atraumatic, normocephalic - Eye Eye exam: Present: normal appearance, EOMI. Absent: nystagmus - ENT ENT exam: Present: normal exam, normal orophraynx, mucous membranes moist, normal external ear exam - Neck Neck exam: Present: normal inspection, full ROM. Absent: tenderness, meningismus - Respiratory Respiratory exam: Present: normal lung sounds bilaterally. Absent: respiratory distress, wheezes, rales, rhonchi, stridor, decreased breath sounds - Cardiovascular Cardiovascular Exam: Present: regular rate, normal rhythm, normal heart sounds. Absent: bradycardia, tachycardia, irregular rhythm, systolic murmur, diastolic murmur, rubs, gallop - GI/Abdominal GI/Abdominal exam: Present: soft. Absent: distended, tenderness, guarding, rebound, rigid, pulsatile mass - Rectal Rectal exam: Present: deferred - Extremities Exam Extremities exam: Present: normal inspection, full ROM, other (2+ pulses noted in the bilateral upper and lower extremities. There is no palpable cord. negative Homans sign. Muscular compartments are soft. The pelvis is stable.). Absent: pedal edema, calf tenderness - Back Exam Back exam: Present: normal inspection, full ROM. Absent: tenderness, CVA tend erness (R), CVA tenderness (L), paraspinal tenderness, vertebral tenderness - Neurological Exam Neurological exam: Present: alert, oriented X3, normal gait, other (No facial droop. Tongue midline. Extraocular movements intact bilaterally. Facial sensation intact to light touch in V1, V2, V3 distribution bilaterally. 5 and a 5 strength in 4 extremities. Sensation intact to light touch in 4 extremities.). Absent: motor sensory deficit - Psychiatric Psychiatric exam: Present: normal affect, normal mood - Skin Skin exam: Present: warm, dry, intact, normal color. Absent: rash ED Course Vital Signs 11/07/20 11/07/20 11/07/20 10:13 10:56 11:00 Temperature 97.9 F Pulse Rate 72 65 Respiratory 18 13 Rate Blood Pressure 132/62 O2 Sat by Pulse 99 98 Oximetry O2 Sat by Pulse Oximetry [ Digit-Finger] 11/07/20 11/07/20 11/07/20 11:15 11:30 11:46 Temperature Pulse Rate 61 62 54 L Respiratory 17 20 15 Rate Blood Pressure 129/62 129/62 118/66 O2 Sat by Pulse 97 97 98 Oximetry O2 Sat by Pulse Oximetry [ Digit-Finger] 11/07/20 11/07/20 11/07/20 12:01 12:32 12:34 Temperature Pulse Rate 54 L 53 L Respiratory 15 17 Rate Blood Pressure 118/66 118/66 O2 Sat by Pulse 97 98 Oximetry O2 Sat by Pulse 99 Oximetry [ Digit-Finger] 11/07/20 11/07/20 11/07/20 12:36 12:38 12:40 Temperature Pulse Rate 53 L 58 L 74 Respiratory 14 15 26 H Rate Blood Pressure 118/66 118/66 118/66 O2 Sat by Pulse 97 98 91 Oximetry O2 Sat by Pulse Oximetry [ Digit-Finger] 11/07/20 11/07/20 11/07/20 12:42 12:44 12:46 Temperature Pulse Rate 63 47 L 49 L Respiratory 20 14 16 Rate Blood Pressure 118/66 118/66 118/66 O2 Sat by Pulse 95 98 96 Oximetry O2 Sat by Pulse Oximetry [ Digit-Finger] 11/07/20 11/07/20 11/07/20 12:48 12:50 12:52 Temperature Pulse Rate 53 L 56 L 54 L Respiratory 16 17 9 L Rate Blood Pressure 118/66 118/66 118/66 O2 Sat by Pulse 98 99 98 Oximetry O2 Sat by Pulse Oximetry [ Digit-Finger] 11/07/20 11/07/20 11/07/20 12:54 12:56 12:58 Temperature Pulse Rate 54 L 56 L 54 L Respiratory 10 L 11 L 18 Rate Blood Pressure 118/66 118/66 118/66 O2 Sat by Pulse 98 97 98 Oximetry O2 Sat by Pulse Oximetry [ Digit-Finger] 11/07/20 11/07/20 11/07/20 13:00 13:02 13:04 Temperature Pulse Rate 55 L 57 L 44 L Respiratory 14 13 11 L Rate Blood Pressure 118/66 118/66 118/66 O2 Sat by Pulse 98 98 98 Oximetry O2 Sat by Pulse Oximetry [ Digit-Finger] 11/07/20 11/07/20 11/07/20 13:06 13:08 13:10 Temperature Pulse Rate 46 L 53 L 44 L Respiratory 17 16 15 Rate Blood Pressure 118/66 118/66 118/66 O2 Sat by Pulse 97 97 98 Oximetry O2 Sat by Pulse Oximetry [ Digit-Finger] 11/07/20 11/07/20 11/07/20 13:12 13:14 13:16 Temperature Pulse Rate 47 L 46 L 52 L Respiratory 17 13 17 Rate Blood Pressure 118/66 118/66 118/66 O2 Sat by Pulse 100 100 97 Oximetry O2 Sat by Pulse Oximetry [ Digit-Finger] 11/07/20 11/07/20 11/07/20 13:18 13:20 13:22 Temperature Pulse Rate 55 L 52 L 46 L Respiratory 11 L 16 13 Rate Blood Pressure 118/66 118/66 118/66 O2 Sat by Pulse 98 98 97 Oximetry O2 Sat by Pulse Oximetry [ Digit-Finger] 11/07/20 11/07/20 11/07/20 13:24 13:26 13:28 Temperature Pulse Rate 51 L 53 L 56 L Respiratory 13 17 15 Rate Blood Pressure 118/66 118/66 118/66 O2 Sat by Pulse 98 98 97 Oximetry O2 Sat by Pulse Oximetry [ Digit-Finger] 11/07/20 11/07/20 11/07/20 13:30 13:32 13:34 Temperature Pulse Rate 57 L 57 L 55 L Respiratory 16 16 14 Rate Blood Pressure 118/66 118/66 118/66 O2 Sat by Pulse 99 99 97 Oximetry O2 Sat by Pulse Oximetry [ Digit-Finger] 11/07/20 11/07/20 11/07/20 13:36 13:38 13:40 Temperature Pulse Rate 54 L 51 L 53 L Respiratory 18 16 15 Rate Blood Pressure 118/66 118/66 118/66 O2 Sat by Pulse 97 98 98 Oximetry O2 Sat by Pulse Oximetry [ Digit-Finger] 11/07/20 11/07/20 11/07/20 13:42 13:44 13:46 Temperature Pulse Rate 54 L 53 L 58 L Respiratory 14 17 13 Rate Blood Pressure 118/66 118/66 118/66 O2 Sat by Pulse 98 97 98 Oximetry O2 Sat by Pulse Oximetry [ Digit-Finger] 11/07/20 11/07/20 11/07/20 13:48 13:50 13:52 Temperature Pulse Rate 52 L 53 L 52 L Respiratory 12 15 18 Rate Blood Pressure 118/66 118/66 118/66 O2 Sat by Pulse 98 97 99 Oximetry O2 Sat by Pulse Oximetry [ Digit-Finger] 11/07/20 11/07/20 11/07/20 13:54 13:56 13:58 Temperature Pulse Rate 50 L 51 L 53 L Respiratory 16 16 15 Rate Blood Pressure 118/66 118/66 118/66 O2 Sat by Pulse 97 97 98 Oximetry O2 Sat by Pulse Oximetry [ Digit-Finger] 11/07/20 11/07/20 11/07/20 14:00 14:02 14:04 Temperature Pulse Rate 51 L 50 L 47 L Respiratory 16 16 16 Rate Blood Pressure 118/66 118/66 118/66 O2 Sat by Pulse 97 97 97 Oximetry O2 Sat by Pulse Oximetry [ Digit-Finger] 11/07/20 11/07/20 11/07/20 14:06 14:08 14:09 Temperature Pulse Rate 51 L 50 L 51 L Respiratory 16 14 14 Rate Blood Pressure 118/66 142/52 142/52 O2 Sat by Pulse 98 98 98 Oximetry O2 Sat by Pulse Oximetry [ Digit-Finger] - Reevaluation(s) Reevaluation #1: 11/07/20 11:12 Differential diagnosis, including but not limited to: Electrolyte derangement, paroxysmal SVT, chronic hypertension Assessment and plan: 70-year-old gentleman, who is not currently tachycardic, tachypneic or hypoxic, recently ruled out for pulmonary embolism with a negative CT scan of the chest, who is compliant with CPAP and medications, likely presenting with breakthrough of SVT. He recently had an extensive laboratory and cardiology work-up at this facility. He also had a TSH which was unremarkable. I suspect that this is an exacerbation of underlying chronic SVT. Patient and I had an extensive discussion on various vagal maneuvers in which he can perform to self terminate presumed SVT. We will also repeat twelve-lead EKG x1, obtain CBC, basic metabolic panel, and magnesium level. He did take his metoprolol and aspirin this morning. We will give additional dose of metoprolol, and additional aspirin, as he only takes 81 mg of aspirin Once his initial diagnostics have resulted, we will discuss with cardiology on- call, and determine if it is appropriate to increase his metoprolol dose, which is currently 50 mg every 8 hours. I have discussed this plan of care with the patient, and he is agreeable to this plan of care. At this point time, all questions answered. 11/07/20 11:49 Patient's significant other has called from out of state. Patient gave permission for the details of his medical care to be discussed with his significant other. However, the patient understands that he is suitable for discharge, and he states he is reliable to follow-up with outpatient cardiology. He does not want to be admitted to the hospital, nor is admission medically necessary at this time. 11/07/20 14:11 Patient reassessed multiple times. He is in no acute distress. Laboratory studies are nonactionable. Chronic anemia, thrombocytosis is likely secondary to underlying history of splenectomy. He can follow-up with an outpatient primary care doctor or sail repairer for this. Discussed patient's history, physical, laboratory studies and EKG findings with Christina Vanegas, nurse practitioner licensed mass real estate appraiser, working with Dr. Eli. She advises that patient discontinue current metoprolol prescription, and start metoprolol 100 mg XL, twice daily. She has also reached out to [facility] cardiology office, and the patient may follow-up with Dr. Martinez, electrophysiology, in the [place] office, November 21, 2020 at 2:45 PM. The patient will need to contact the [facility] and obtain a referral for this appointment. Discussed this extensively with the patient. He has articulated understanding. Return precautions are reviewed. Patient is observed in this ER for hours without clinical decompensation - Pulse Oximetry Interpretation Digit-Finger Initial Pulse Oximetry Readin O2 Sat by Pulse Oximetry: 99 Actions Taken: none ED Medical Decision Making - Lab Data Result diagrams: 11/07/20 11:42 11/07/20 11:42 Vital Signs 11/07/20 11/07/20 11/07/20 10:13 10:56 11:00 Temperature 97.9 F Pulse Rate 72 65 Respiratory 18 13 Rate Blood Pressure 132/62 O2 Sat by Pulse 99 98 Oximetry O2 Sat by Pulse Oximetry [ Digit-Finger] 11/07/20 11/07/20 11/07/20 11:15 11:30 11:46 Temperature Pulse Rate 61 62 54 L Respiratory 17 20 15 Rate Blood Pressure 129/62 129/62 118/66 O2 Sat by Pulse 97 97 98 Oximetry O2 Sat by Pulse Oximetry [ Digit-Finger] 11/07/20 11:50 Temperature Pulse Rate Respiratory Rate Blood Pressure O2 Sat by Pulse Oximetry O2 Sat by Pulse 99 Oximetry [ Digit-Finger] - EKG Data -: EKG Interpreted by Ar EKG shows normal: sinus rhythm - EKG Data 11/07/20 11:49 EKG interpreted at 11: 42 Sinus rhythm, bradycardia, rate 53 bpm. Normal axis, otherwise normal intervals, right bundle branch block, atrial enlargement. Abnormal EKG. Not a STEMI. The EKG today is unchanged from prior EKG from 10/30/2020 Critical care attestation.: If time is entered above; I have spent that time in minutes in the direct care of this critically ill patient, excluding procedure time. ED Disposition Clinical Impression: SVT (supraventricular tachycardia), Anemia, Thrombocytosis after splenectomy Disposition: HOME / SELF CARE / HOMELESS Is pt being admited?: No Does the pt Need Aspirin: No Condition: Good Instructions: Supraventricular Tachycardia, Adult, [id number], Preventing Iron Deficiency Anemia, Adult, Platelet Count Test Additional Instructions: Discontinue metoprolol prescription. Local licensed mass real estate appraiser team has recommended the patient start metoprolol 100 mg XL, twice daily. Patient will be given this prescription. He should currently continue his aspirin. As we discussed, the patient has a follow-up appointment with Dr. Martinez, pattern cleaner at [facility], November 21, 2:45 PM. The patient should reach out to his insurance company at the [facility]/insurance provider, informed them of this appointment, and make certain to obtain prior authorization for this appointment. Failure to do so may result in the patient having full financial responsibility for this upcoming appointment. Make certain to use CPAP at night, and avoid consumption of alcohol, tobacco, smoke products, and caffeine-containing drinks. If the patient experiences palpitations again in the future, he may participate in the activities that we discussed to help decrease heart rate. These include holding breath and bearing down for 10 to 15 seconds, rubbing gently on one side of the neck (make certain to not rub on both sides of the neck simultaneously), or knocking once head in a bucket or container of ice water for 5 to 10 seconds. Please return to the emergency room right away with new pain, worsened pain, migration of pain, projectile vomiting, change in mental status, confusion, inability to tolerate liquid feeds, new, worsened or different symptoms not present on the initial emergency room evaluation. Laboratory studies have demonstrated chronic anemia, and chronically elevated platelet count, which are likely secondary to patient having had his spleen surgically removed in the past. These findings should be followed up by an outpatient primary care doctor or sail repairer such as Dr. Moreland within the next month. Please return to the emergency room right away with new, worsened or different symptoms or symptoms not present on the initial emergency room evaluation Referrals: MATTHEW MORELAND MD [Staff Physician] - 3-5 Days STACI MARTINEZ MD [Staff Physician] - 11/21/20 2:45 pm (Dr. Martinez, [place] office, November 21, 2020, 2:45 PM. [phone] [address] [address] Office: [phone] Hours: Tuesday - Tuesday 8:30 a.m. to 5:00 p.m.)
[2020-11-07 12:03] LABS: Hematocrit 27.9 % (35.5-45.6); Hemoglobin 8.9 gm/dl (11.8-15.2); Mean Corpuscular HGB Conc 32 % (32-34); Red Blood Count 4.61 M/mm3 (3.65-5.03)
[2020-11-07 12:18] LABS: BUN/Creatinine Ratio 21; Blood Urea Nitrogen 27 mg/dL (9-20); Hemolysis Index 11
[2020-11-07 12:32] LABS: Mean Corpuscular Volume 61 fl (84-94); Red Cell Distribution Width > 40.0 % (13.2-15.2)
[2020-11-07 13:02] LABS: Total Cells Counted 100
[2020-11-07 13:03] LABS: Anisocytosis 3+
[2020-11-07 13:04] LABS: Giant Platelets Few; Hypochromasia 1+; Ovalocytes 3+; Platelet Estimate Consistent w Auto; Tear Drop Cells 2+
[2020-11-07 13:11] LABS: Platelet Count 597 K/mm3 (140-440)
[2020-11-07 16:43] VITALS: BP 135/59
--- NOTE | 2020-11-09 17:15 | Electrocardiograph Report ---
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 : 1950 Requested By: MUKESH RAHMAN Order Number: [id number] Reading MD: Sergio Rivera Measurements Intervals [place] Rate: 53 P: 57 IN: 163 QRS: 27 QRSD: 153 T: 29 QT: 421 QTc: 396 Interpretive Statements Sinus bradycardia Probable left atrial enlargement Right bundle branch block Compared to ECG 10/30/2020 16:17:40 No significant change Electronically Signed On 11-09-2020 17:15:29 EDT by Sergio Rivera
== END 2020-11-07 16:46 | disposition home or self-care (01) ==
LOC: ED 10:13
DX: I47.1 Supraventricular tachycardia (principal); D64.9 Anemia, unspecified; D47.3 Essential (hemorrhagic) thrombocythemia; I10 Essential (primary) hypertension; F17.200 Nicotine dependence, unspecified, uncomplicated; Z88.8 Allergy status to other drugs, medicaments and biological substances
CPT/HCPCS: 36415; 80048; 83735; 85007; 85025; 93005; 99284